=== PATIENT | female | born 1985 | race Caucasian/White ===

== ENCOUNTER → 2019-08-23 15:44 | Outpatient (CLI) | payer BC, OTHER, SELFPAY ==
[2019-08-23 18:04] LABS: Add Manual Diff / Slide Review NO; Basophils Absolute Auto 100 /uL (0-100); Basophils Percent Auto 0.8 % (0-2); Eosinophils Absolute Auto 200 /uL (0-450); Eosinophils Percent Auto 2.8 % (2-4); Hematocrit 41.8 % (36-46); Hemoglobin 14.1 g/dL (12.0-16.0); Lymphocytes Absolute Auto 1800 /uL (1100-4500); Lymphocytes Percent Auto 26.9 % (25-40); Mean Corpuscular HGB Conc 33.6 % (30-36); Mean Corpuscular Volume 92.3 fL (80-100); Monocytes Absolute Auto 500 /uL (0-900); Monocytes Percent Auto 7.4 % (3-14); Neutrophils Absolute Auto 4100 /uL (1500-7000); Neutrophils Percent Auto 62.1 % (50-75); Platelet Count 298 X10^3/uL (150-400); Red Blood Cell Count 4.53 X10^6/uL (4.0-5.2); Red Cell Distribution Width 13.6 % (11.6-14.8); White Blood Cell Count 6.7 X10^3/uL (4.5-11.0)
[2019-08-23 18:06] LABS: Alanine Aminotransferase 20 IU/L (<35); Albumin 4.5 g/dL (3.5-5.0); Albumin Globulin Ratio 1.5 (1.0-2.8); Alkaline Phosphatase 64 U/L (38-126); Aspartate Aminotransferase 22 IU/L (14-36); Bilirubin Total 0.3 mg/dL (0.2-1.3); Blood Urea Nitrogen 18 mg/dL (7-17); Calcium 9.1 mg/dL (8.4-10.2); Carbon Dioxide 28 mmol/L (22-32); Chloride 102 mmol/L (98-107); Cholesterol 241 mg/dL (140-199); Estimated Glomerular Filt Rate > 60.0 mL/min (>60); Globulin 3.1 g/dL (1.7-4.1); Glucose 86 mg/dL (70-100); HDL Cholesterol 48 mg/dL (40-60); HEMOLYSIS < 15 (0-50); LDL Cholesterol Calculated 139 mg/dL (<100); Magnesium 2.3 mg/dL (1.6-2.3); Potassium 4.1 mmol/L (3.4-5.1); Sodium 139 mmol/L (137-145); Total Protein 7.6 g/dL (6.3-8.2); Triglycerides 270 mg/dL (35-150)
[2019-08-23 18:35] LABS: TSH w/ Reflex to FT4 3.19 uIU/mL (0.47-4.68)
[2019-08-26 10:54] LABS: Aldosterone/Renin Activity Rat 28.3 Ratio (0.9-28.9)
== END ==
PROVIDERS: PCP Physician Assistant; Referring Provider Physician Assistant; Visit Provider Physician Assistant
DX: I15.8 Other secondary hypertension (principal); E03.9 Hypothyroidism, unspecified; R00.2 Palpitations; F41.9 Anxiety disorder, unspecified; E78.2 Mixed hyperlipidemia
CPT/HCPCS: 36415; 80053; 80061; 82088; 83735; 84244; 84443; 85025

== ENCOUNTER → 2019-08-30 11:04 | Outpatient (ROUT) | payer BC, OTHER, SELFPAY ==
[2019-09-02 14:38] LABS: Cortisol, Free, Urine 72.4 mcg/24 h (4.0-50.0); Total Volume 3200 mL
[2019-09-03 09:34] LABS: Total Volume 3200 mL; Urine, Metanephrine 88 mcg/24 h (36-190); Urine, Normetanephrine 599 mcg/24 h (35-482)
== END ==
PROVIDERS: PCP Physician Assistant; Visit Provider Physician Assistant
DX: I15.8 Other secondary hypertension (principal); E03.9 Hypothyroidism, unspecified; R00.2 Palpitations; F41.9 Anxiety disorder, unspecified
CPT/HCPCS: 82530; 83835

== ENCOUNTER → 2019-10-19 12:37 | Outpatient (CLI) | payer BC, OTHER, SELFPAY ==
[2019-10-23 10:36] LABS: Metanephrine,Plasma 20 pg/mL (0-62)
== END ==
PROVIDERS: PCP Physician Assistant; Referring Provider Physician Assistant; Visit Provider Physician Assistant
DX: D35.00 Benign neoplasm of unspecified adrenal gland (principal)
CPT/HCPCS: 36415; 83835

== ENCOUNTER → 2020-08-07 20:28 | Outpatient (ROUT) | payer OTHER, SELFPAY ==
[2020-08-07 21:19] LABS: Pregnancy Test Urine Negative (Negative)
[2020-08-07 21:20] LABS: Add Manual Diff / Slide Review NO; Basophils Absolute Auto 0 /uL (0-100); Basophils Percent Auto 0.5 % (0-2); Eosinophils Absolute Auto 400 /uL (0-450); Eosinophils Percent Auto 4.6 % (2-4); Hematocrit 43.2 % (36-46); Hemoglobin 14.3 g/dL (12.0-16.0); Lymphocytes Absolute Auto 2200 /uL (1100-4500); Lymphocytes Percent Auto 27.4 % (25-40); Mean Corpuscular Volume 93.8 fL (80-100); Monocytes Absolute Auto 700 /uL (0-900); Neutrophils Absolute Auto 4800 /uL (1500-7000); Neutrophils Percent Auto 58.5 % (50-75); Platelet Count 269 X10^3/uL (150-400); Red Blood Cell Count 4.61 X10^6/uL (4.0-5.2); Red Cell Distribution Width 13.5 % (11.6-14.8); White Blood Cell Count 8.1 X10^3/uL (4.5-11.0)
[2020-08-07 21:26] LABS: Alanine Aminotransferase 15 IU/L (<35); Albumin 4.3 g/dL (3.5-5.0); Albumin Globulin Ratio 1.4 (1.0-2.8); Alkaline Phosphatase 51 U/L (38-126); Aspartate Aminotransferase 20 IU/L (14-36); BUN Creatinine Ratio 24.4 (6-22); Bilirubin Total 0.2 mg/dL (0.2-1.3); Blood Urea Nitrogen 21 mg/dL (7-17); Calcium 9.6 mg/dL (8.4-10.2); Carbon Dioxide 27 mmol/L (22-32); Chloride 102 mmol/L (98-107); Estimated Glomerular Filt Rate > 60.0 mL/min (>60); Glucose 81 mg/dL (70-100); HEMOLYSIS < 15 (0-50); Potassium 4.5 mmol/L (3.4-5.1); Sodium 134 mmol/L (137-145); Total Protein 7.3 g/dL (6.3-8.2)
== END ==
PROVIDERS: PCP Physician Assistant; Visit Provider Physician Assistant
DX: R19.07 Generalized intra-abdominal and pelvic swelling, mass and lump (principal)
CPT/HCPCS: 80053; 81025; 85025

== ENCOUNTER → 2020-08-09 09:35 | Outpatient (CLI) | payer OTHER, SELFPAY ==
--- NOTE | 2020-08-09 | DI.CT.S_ITS ---
PROCEDURE: CT ABDOMEN PELVIS W CON INDICATIONS: Generalized intra-abdominal and pelvic swelling, mass and lump TECHNIQUE: After the administration of oral and intravenous contrast, 5 mm thick sections acquired from the diaphragms to the symphysis. 5 mm thick coronal and sagittal reformats were performed. For radiation dose reduction, the following was used: automated exposure control, adjustment of mA and/or kV according to patient size. COMPARISON: None. FINDINGS: Image quality: Excellent. ABDOMEN: Lung bases: Left lower lobe 3 mm pulmonary nodule, (3/4). No pleural effusion. Heart size is normal. Solid organs: Liver is normal in size and enhancement. Gallbladder is unremarkable. Biliary system is non-dilated. Pancreas enhances normally. Spleen is normal in size and enhancement. Small splenule. No adrenal nodules. Kidneys are normal in size and enhancement, without hydronephrosis. Peritoneum and bowel: Stomach, small bowel, and colon loops are normal in caliber and wall thickness. Suspect small duodenal diverticulum, (). Normal appendix. No free fluid or air. Nodes and vessels: No retroperitoneal or mesenteric adenopathy. Aorta and inferior vena cava are normal in caliber. Circumaortic left renal vein, variant. Miscellaneous: Tiny fat containing periumbilical hernia. PELVIS: Genitourinary: Bladder wall thickness is normal. Anteverted uterus. There is a large pelvic uterine mass measuring 10.7 x 9.6 x 7.8 cm, ( and ), volume of approximately 417 cc. Ovaries are unremarkable. Miscellaneous: No inguinal hernias or adenopathy. Bones: No suspicious bony lesions. No vertebral body compression fractures. IMPRESSION: 1. Large uterine mass measuring up to 10.7 cm, estimated volume of 417 cc. [address] has a CT imaging appearance of a large fibroid uterus. Pelvic ultrasound or MRI with IV contrast would be helpful for further evaluation. Particularly if there is a history of interval growth. Gynecological consultation is recommended. 2. No adenopathy. Dictated by: Bud Jackson M.D. on 08/09/2020 at 11:48 Approved by: Bud Jackson M.D. on 08/09/2020 at 11:57
== END ==
PROVIDERS: PCP Physician Assistant; Referring Provider Physician Assistant; Visit Provider Physician Assistant
DX: R19.07 Generalized intra-abdominal and pelvic swelling, mass and lump (principal)
CPT/HCPCS: 74177; Q9967